=== PATIENT | female | born 1945 | race Two or more races ===

== ENCOUNTER 2024-04-06 13:40 | Inpatient (IN) | payer OTHER ==
[~2024-04-06] VITALS: Ht 165.1 cm; Wt 65.8 kg
[2024-04-06] MEDS ORDERED: PLAVIX75 MG PO (14:04)
[2024-04-06] MEDS ORDERED: CARVEDILOL ER10 MG PO (14:04)
[2024-04-06] MEDS ORDERED: CALDESENE BABY142 GM TP (14:05)
[2024-04-06] MEDS ORDERED: ADULT LOW DOSE81 M1 PO (14:05)
[2024-04-06] MEDS ORDERED: HYDRALAZINE HCL10 MG PO (14:05)
[2024-04-06] MEDS ORDERED: CRESTOR40 MG (14:05)
[2024-04-06] MEDS ORDERED: NIFEDIPINE20 MG PO (14:06)
[2024-04-06] MEDS ORDERED: GUAIFENESIN/DEXTROMETHORPHAN 10ML BLIST.PACK PO ONE ×2 (15:00→15:06)
[2024-04-06] MEDS ORDERED: METHYLPREDNISOLONE SOD SUCC 125 MG VIAL IV ONE (15:00)
[2024-04-06] MEDS ORDERED: LEVALBUTEROL HCL 1.25 MG/3 ML SOLUTION IH SCH (15:00)
[2024-04-06] MEDS ORDERED: CLOPIDOGREL BISULFATE 75 MG TABLET PO ONE ×2 (15:00→15:06)
[2024-04-06] MEDS ORDERED: IPRATROPIUM BROMIDE 0.5 MG/2.5 ML AMPUL.NEB IH SCH ×2 (15:00→21:12)
[2024-04-06] MEDS ORDERED: METHYLPREDNISOLONE SOD SUCC 125 MG VIAL ONE (15:06)
[2024-04-06] MEDS ORDERED: IPRATROPIUM BROMIDE 0.5 MG/2.5 ML AMPUL.NEB IH ONE (16:07)
[2024-04-06] MEDS ORDERED: LEVALBUTEROL HCL 0.63 MG/3 ML SOLUTION IH ONE (16:07)
[2024-04-06 16:15] LABS: HEMATOCRIT 39.1 % (36.0-45.00); HEMOGLOBIN 12.2 g/dL (12.0-15.00); MEAN CELL VOLUME 75.5 fL (80.00-100.00); MEAN CORPUSCULAR HEMOGLOBIN 23.6 pg (27.00-32.0); MEAN CORPUSCULAR HGB CONC 31.2 g/dl (32.0-36.0); PLATELET COUNT 243 K/uL (150-450); RED BLOOD COUNT 5.18 M/uL (4.00-6.00); RED CELL DISTRIBUTION WIDTH 16.3 % (11.5-14.5)
[2024-04-06 16:49] LABS: ALBUMIN 3.1 gm/dL (3.4-5.0); BILIRUBIN TOTAL 0.66 mg/dL (0.3-1.2); CREATININE SERUM 1.07 mg/dL (0.55-1.02); GFR 49.72; GLOBULINA 3.9 G/DL (2.4-3.5); POTASSIUM 3.99 mEq/L (3.5-5.1)
[2024-04-06] MEDS ORDERED: AZITHROMYCIN 500 MG VIAL IV ONE ×2 (20:28→20:30)
[2024-04-06] MEDS ORDERED: CEFTRIAXONE SODIUM 2,000 MG VIAL ONE (20:28)
[2024-04-06] MEDS ORDERED: CEFTRIAXONE SODIUM 2,000 MG VIAL IV ONE (20:30)
[2024-04-06] MEDS ORDERED: GUAIFEN/DEXTROMETHORPHAN/PE 10 ML BLIST.PACK PO SCH (21:14)
[2024-04-06] MEDS ORDERED: ACETAMINOPHEN 500 MG GEL..CAP PO PRN (21:15)
[2024-04-06] MEDS ORDERED: 0.9 % SODIUM CHLORIDE 1,000 ML IV SCH (21:15)
[2024-04-06 22:46] LABS: ABG PH 7.424 (7.35-7.45); ABG PO2 69.4 mmHg (80-100); ABG pCO2 48.3 mmHg (35-45); BASE EXCESS 5.4 mmol/l; BICARBONATE 30.9 mmol/l (23-25); Tco2 32.4 mmol/l; o2 21 %
[2024-04-06 22:47] LABS: allen test SATISFACTORY; puncture site RADIAL LEFT
[2024-04-06 22:48] LABS: SaO2 94.3 %
[2024-04-07 01:10] VITALS: BP 162/96; O2SAT 96
[2024-04-07 03:30] VITALS: BP 135/69; O2SAT 96
[2024-04-07 07:15] LABS: INR 1.02; PROTHROMBIN TIME 11.1 SECONDS (9.0-11.5)
[2024-04-07 07:46] VITALS: BP 151/72
[2024-04-07] MEDS ORDERED: CEFTRIAXONE SODIUM 2,000 MG in 0.9 % SODIUM CHLORIDE 100 ML IV SCH (09:00)
[2024-04-07] MEDS ORDERED: FAMOTIDINE/PF 20 MG in 0.9 % SODIUM CHLORIDE 8 ML IV PUSH SCH (09:00)
[2024-04-07] MEDS ORDERED: CARVEDILOL 25 MG TABLET PO SCH (09:00)
[2024-04-07] MEDS ORDERED: hydrALAZINE HCL 25 MG TABLET PO SCH (09:00)
[2024-04-07] MEDS ORDERED: ENOXAPARIN SODIUM 40 MG/0.4 ML SYRINGE SUBCUTANEO SCH (09:00)
[2024-04-07] MEDS ORDERED: CLOPIDOGREL BISULFATE 75 MG TABLET PO SCH (09:00)
[2024-04-07] MEDS ORDERED: AZITHROMYCIN 500 MG in DEXTROSE 5 % IN WATER 250 ML IV SCH (09:00)
[2024-04-07 16:00] VITALS: BP 109/66; O2SAT 95
[2024-04-07 16:45] LABS: PH,URINE 5.5 (5.0-8.0); URINE APPEARANCE Clear; URINE BILIRRUBIN Negative (NEGATIVE); URINE BLOOD Negative; URINE COLOR Yellow; URINE EPITHELIAL CELLS 40.3 uL (0.0-38.8); URINE KETONE Negative (NEGATIVE); URINE LEUKOCYTE Negative; URINE NITRATE Negative; URINE PROTEIN Trace (NEGATIVE); URINE RBC 49.7 uL (0.0-20.8); URINE WBC 2.8 uL (0.0-23.2)
[2024-04-07] MEDS ORDERED: NIFEDIPINE 30 MG TAB.SA.OSM PO SCH (17:00)
[2024-04-07 17:12] LABS: URINE CAST 0.58 uL (0.0-1.40); URINE CRYSTALS FEW /HPF; URINE GLUCOSE 250 MG/DL (NEGATIVE)
[2024-04-07 17:13] LABS: URINE MUCUS MODERATE
[2024-04-07] MEDS ORDERED: IPRATROPIUM BROMIDE 0.5 MG/2.5 ML AMPUL.NEB IH SCH (18:00)
[2024-04-08 01:46] VITALS: BP 138/71; O2SAT 98
[2024-04-08 06:29] LABS: HEMATOCRIT 34.1 % (36.0-45.00); HEMOGLOBIN 10.9 g/dL (12.0-15.00); MEAN CELL VOLUME 75.5 fL (80.00-100.00); MEAN CORPUSCULAR HEMOGLOBIN 24.1 pg (27.00-32.0); MEAN CORPUSCULAR HGB CONC 31.9 g/dl (32.0-36.0); PLATELET COUNT 258 K/uL (150-450); RED BLOOD COUNT 4.52 M/uL (4.00-6.00); RED CELL DISTRIBUTION WIDTH 16.3 % (11.5-14.5)
[2024-04-08 06:48] LABS: ALBUMIN 2.8 gm/dL (3.4-5.0); BILIRUBIN TOTAL 0.2 mg/dL (0.3-1.2); CALCIUM 8.5 mg/dL (8.5-10.1); CREATININE SERUM 0.92 mg/dL (0.55-1.02); GFR 59.19; GLOBULINA 3.3 G/DL (2.4-3.5); MAGNESIUM 2.1 mg/dL (1.8-2.4); PHOSPHOROUS 3.2 mg/dL (2.5-4.9); POTASSIUM 3.37 mEq/L (3.5-5.1); TOTAL PROTEIN 6.1 gm/dL (6.4-8.2)
[2024-04-08 06:49] LABS: C-REACTIVE PROTEIN 6.84 MG/DL (0.00-0.29)
[2024-04-08] MEDS ORDERED: CEFTRIAXONE SODIUM 2,000 MG VIAL ONE (08:33)
[2024-04-08] MEDS ORDERED: FAMOTIDINE/PF 20 MG/2 ML VIAL ONE (08:33)
[2024-04-08 08:34] VITALS: BP 157/72; O2SAT 98
[2024-04-08 08:48] LABS: MYCOPLASMA PNEUMONIAE IGM REACTIVE (NO REACTIVE)
[2024-04-08 12:16] LABS: PROCALCITONIN 0.32 ng/ml (0.020-0.080)
[2024-04-08 12:45] LABS: CORTISOL 5.28 ug/dl
[2024-04-08 17:30] VITALS: BP 130/72; O2SAT 96
[2024-04-09 02:17] VITALS: BP 145/84; O2SAT 99
[2024-04-09 09:25] VITALS: BP 160/78; O2SAT 98
[2024-04-09 16:07] VITALS: BP 181/94; O2SAT 96
[2024-04-09] MEDS ORDERED: SODIUM CL 0.9% 100 ML IV.SOLN IV ONE (18:40)
[2024-04-10 02:59] VITALS: BP 142/69; O2SAT 97
[2024-04-10 08:15] LABS: ALBUMIN 3.1 gm/dL (3.4-5.0); BILIRUBIN TOTAL 0.33 mg/dL (0.3-1.2); CALCIUM 8.6 mg/dL (8.5-10.1); CREATININE SERUM 0.7 mg/dL (0.55-1.02); GFR 81.14; GLOBULINA 3.4 G/DL (2.4-3.5); MAGNESIUM 2.2 mg/dL (1.8-2.4); PHOSPHOROUS 2.4 mg/dL (2.5-4.9); POTASSIUM 4.02 mEq/L (3.5-5.1); TOTAL PROTEIN 6.5 gm/dL (6.4-8.2)
[2024-04-10 08:33] LABS: C-REACTIVE PROTEIN 5.28 MG/DL (0.00-0.29)
[2024-04-10] MEDS ORDERED: hydrALAZINE HCL 25 MG TABLET PO SCH (09:00)
[2024-04-10 10:03] VITALS: BP 164/85; O2SAT 98
[2024-04-10] MEDS ORDERED: IPRATROPIUM BROMIDE 0.5 MG/2.5 ML AMPUL.NEB IH SCH (13:00)
[2024-04-10 16:29] VITALS: BP 145/65; O2SAT 100
[2024-04-10] MEDS ORDERED: METHYLPREDNISOLONE SOD SUCC 40 MG VIAL IV SCH (17:00)
[2024-04-10] MEDS ORDERED: hydrALAZINE HCL 50 MG TABLET PO SCH (21:00)
[2024-04-11 01:18] VITALS: BP 136/68
[2024-04-11 08:58] VITALS: BP 151/66; O2SAT 96
[2024-04-11 14:26] VITALS: BP 150/73; O2SAT 99
[2024-04-11 16:00] VITALS: BP 148/72; O2SAT 96
[2024-04-11] MEDS ORDERED: METHYLPREDNISOLONE SOD SUCC 40 MG VIAL IV SCH (17:00)
[2024-04-12 00:35] VITALS: BP 137/81; O2SAT 99
[2024-04-12 08:10] VITALS: BP 152/70; O2SAT 96
[2024-04-12] MEDS ORDERED: FAMOtidine 20 MG TABLET PO SCH (09:00)
[2024-04-12 16:15] VITALS: BP 152/90; O2SAT 99
[2024-04-13] VITALS: BP 111/56; O2SAT 96
[2024-04-13 07:22] LABS: HEMATOCRIT 35.6 % (36.0-45.00); HEMOGLOBIN 11.3 g/dL (12.0-15.00); MEAN CELL VOLUME 74.9 fL (80.00-100.00); MEAN CORPUSCULAR HEMOGLOBIN 23.7 pg (27.00-32.0); MEAN CORPUSCULAR HGB CONC 31.6 g/dl (32.0-36.0); PLATELET COUNT 273 K/uL (150-450); RED BLOOD COUNT 4.75 M/uL (4.00-6.00); RED CELL DISTRIBUTION WIDTH 16.4 % (11.5-14.5)
[2024-04-13 08:03] LABS: ALBUMIN 2.6 gm/dL (3.4-5.0); BILIRUBIN TOTAL 0.21 mg/dL (0.3-1.2); CALCIUM 8.9 mg/dL (8.5-10.1); CREATININE SERUM 0.95 mg/dL (0.55-1.02); GFR 57.04; GLOBULINA 3.4 G/DL (2.4-3.5); MAGNESIUM 2.2 mg/dL (1.8-2.4); PHOSPHOROUS 2.6 mg/dL (2.5-4.9); POTASSIUM 4.97 mEq/L (3.5-5.1)
[2024-04-13 08:08] LABS: C-REACTIVE PROTEIN 1.37 MG/DL (0.00-0.29)
[2024-04-13 08:42] VITALS: BP 122/58; O2SAT 95
[2024-04-13 16:56] VITALS: BP 167/90; O2SAT 95
[2024-04-13 18:04] LABS: quan ag 0 IU/mL (.); quan ag 0.01 IU/mL (.); quan mito 0.09 IU/mL (.); quant nil 0 IU/mL (.)
== END 2024-04-13 21:41 | disposition home or self-care (01) | DRG 194 ==
LOC: ER 13:43 → MEDI 21:44 → SURH 04-11 11:41
PROVIDERS: General Practice; Internal Medicine Infectious Disease; ADMIT Internal Medicine; ATTEND Internal Medicine
PROC: BW24ZZZ Computerized Tomography (CT Scan) of Chest and Abdomen (ICD-10-PCS; principal; 2024-04-06)
DX: J15.7 Pneumonia due to Mycoplasma pneumoniae (principal); J21.8 Acute bronchiolitis due to other specified organisms; J18.9 Pneumonia, unspecified organism; E78.5 Hyperlipidemia, unspecified; I25.10 Atherosclerotic heart disease of native coronary artery without angina pectoris; I11.9 Hypertensive heart disease without heart failure; R13.19 Other dysphagia; I10 Essential (primary) hypertension